=== PATIENT | female | born 1945 | race Caucasian/White ===

== ENCOUNTER → 2017-08-05 | Outpatient (CLI) | payer OTHER, MEDICARE | LOC: BMCIMAGING 13:46 | PROVIDERS: ATTEND Internal Medicine | DX: Z12.31 Encounter for screening mammogram for malignant neoplasm of breast (principal) | CPT/HCPCS: G0202 ==

== ENCOUNTER → 2018-08-19 | Outpatient (CLI) | payer OTHER, MEDICARE | END | disposition home or self-care (01) | LOC: BMCIMAGING 15:03 | PROVIDERS: ATTEND Internal Medicine | DX: Z12.31 Encounter for screening mammogram for malignant neoplasm of breast (principal); N64.89 Other specified disorders of breast ==

== ENCOUNTER → 2018-08-28 | Outpatient (CLI) | payer OTHER, MEDICARE | LOC: BMCIMAGING 10:51 | PROVIDERS: ATTEND Physician Assistant | DX: M89.9 Disorder of bone, unspecified (principal) ==

== ENCOUNTER → 2018-08-28 | Outpatient (CLI) | payer OTHER, MEDICARE | LOC: BMCIMAGING 10:45 | PROVIDERS: ATTEND Physician Assistant | DX: R92.8 Other abnormal and inconclusive findings on diagnostic imaging of breast (principal); M89.9 Disorder of bone, unspecified; M81.0 Age-related osteoporosis without current pathological fracture ==